=== PATIENT | female | born 1995 | race Caucasian/White ===

== ENCOUNTER 2018-11-02 04:46 | Emergency (ER) | payer OTHER ==
[~2018-11-02] VITALS: Ht 147.3 cm; Wt 49.9 kg
[2018-11-02 05:24] LABS: ABSOLUTE NEUTROPHILS 5.1 thou/uL (1.4-8.2); BASOPHILS 1.3 % (0.0-2.0); EOSINOPHILS 2.7 % (0.0-3.0); HEMATOCRIT 40.7 % (37.0-47.0); HEMOGLOBIN 14.2 gm/dL (12.0-15.0); LYMPHOCYTES 31.1 % (24.0-44.0); MCH 32.2 pg (26.0-34.0); MCHC 34.8 g/dL (28.0-37.0); MCV 92.5 fL (80.0-100.0); MONOCYTES 5.8 % (1.0-8.0); PLATELET COUNT 353 thou/uL (150-400); POLYS 59.1 % (36.0-66.0); RDW 12.5 % (10.5-14.5); WBC 8.6 thou/uL (4.0-11.0)
[2018-11-02 05:32] LABS: ANION GAP 9 mmol/L (7-16); BUN 14 mg/dL (7-18); CALCIUM 9.5 mg/dL (8.5-10.1); CHLORIDE 102 mmol/L (98-107); CO2 25 mmol/L (21-32); CREATININE 0.7 mg/dL (0.6-1.0); GLUCOSE 116 mg/dL (74-106); POTASSIUM 3.7 mmol/L (3.5-5.1); SODIUM 136 mmol/L (136-145)
[2018-11-02 05:39] LABS: APTT 30.4 Seconds (24.5-32.8); D-DIMER 0.19 ug/mLFEU (0.19-0.50); PROTIME 10.1 Seconds (9.3-11.4)
[2018-11-02 05:42] LABS: ALBUMIN 4.5 g/dL (3.4-5.0); MAGNESIUM 2.1 mg/dL (1.8-2.4); SGOT 21 U/L (15-37); SGPT 24 U/L (30-65); TOTAL BILIRUBIN 0.5 mg/dL (<0.1-1.0); TOTAL PROTEIN 8.6 g/dL (6.4-8.2); TROPONIN-I <0.06 ng/mL (<0.06)
[2018-11-02 06:05] LABS: AMP/METHAMP Negative (Negative); BARBITURATES Negative (Negative); BENZODIAZEPINES Negative (Negative); COCAINE Negative (Negative); METHADONE Negative (Negative); OPIATES Negative (Negative); PCP Negative (Negative)
[2018-11-02 07:50] VITALS: BP 111/75
[2018-11-02] MEDS ORDERED: VISTARIL 25 MG25 M1 PO (07:58)
--- NOTE | 2018-11-02 12:14 | EKG ---
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1995 Requested By: Denilson Rockwell Order Number: [id number] MD: Stephen Mascorro Measurements Intervals [place] Rate: 95 P: 49 DE: 131 QRS: 78 QRSD: 95 T: 58 QT: 356 QTc: 448 Interpretive Statements Sinus rhythm No significant abnormality No previous ECG available for comparison Electronically Signed On 11-02-2018 12:14:41 CDT by Stephen Mascorro [email or web address] ��������������������������������������������� <ELECTRONICALLY SIGNED> ���������������������������������������� By: Stephen Mascorro MD, [facility] ��������������������������������������������� 11/02/18 1214 0513 05 Stephen Mascorro MD, FACC /EPI
== END 2018-11-02 08:07 | disposition home or self-care (01) ==
LOC: ER 04:46
PROVIDERS: Emergency Medicine
DX: R06.02 Shortness of breath (principal); R07.9 Chest pain, unspecified; R00.2 Palpitations; J34.89 Other specified disorders of nose and nasal sinuses; Z88.1 Allergy status to other antibiotic agents

== ENCOUNTER 2018-11-05 23:45 | Emergency (ER) | payer OTHER ==
[~2018-11-05] VITALS: Ht 147.3 cm; Wt 49.9 kg
[~2018-11-05 23:45] MED LIST: VISTARIL 25 MG25 M1 PO
[2018-11-06] MEDS ORDERED: ATIVAN0.5 MG PO (01:59)
[2018-11-06 02:11] VITALS: BP 128/65
--- NOTE | 2018-11-06 09:12 | EKG ---
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1995 Requested By: Ashlee Spencer Order Number: [id number] MD: Stephen Mascorro Measurements Intervals [place] Rate: 93 P: 67 TN: 137 QRS: 80 QRSD: 91 T: 63 QT: 364 QTc: 453 Interpretive Statements Sinus rhythm Atrial premature complex Compared to ECG 11/02/2018 05:13:21 Atrial premature complex(es) now present Electronically Signed On 11-06-2018 9:12:11 CDT by Stephen Mascorro [email or web address] ��������������������������������������������� <ELECTRONICALLY SIGNED> ���������������������������������������� By: Stephen Mascorro MD, [facility] ��������������������������������������������� 11/06/18 0912 0036 Stephen Mascorro MD, FACC /EPI
[2018-11-07] MEDS ORDERED: PHENERGAN 25 MG25 M1 PO (18:22)
== END 2018-11-06 02:12 | disposition home or self-care (01) ==
LOC: ER 23:45
DX: F41.9 Anxiety disorder, unspecified (principal); T42.4X5A Adverse effect of benzodiazepines, initial encounter; R42 Dizziness and giddiness; Z88.1 Allergy status to other antibiotic agents; Y92.89 Other specified places as the place of occurrence of the external cause

== ENCOUNTER 2018-11-07 16:09 | Emergency (ER) | payer OTHER ==
[~2018-11-07] VITALS: Ht 147.3 cm; Wt 49.9 kg
[~2018-11-07 16:09] MED LIST changes: +ATIVAN0.5 MG PO
[2018-11-07 16:41] LABS: URINE BILIRUBIN NEGATIVE (Negative); URINE BLOOD NEGATIVE (Negative); URINE CLARITY CLEAR; URINE COLOR YELLOW; URINE GLUCOSE-RANDOM* NEGATIVE (Negative); URINE KETONES 3+ (Negative); URINE LEUKOCYTES-REFLEX NEGATIVE (Negative); URINE NITRITE-REFLEX NEGATIVE (Negative); URINE PROTEIN (DIPSTICK) NEGATIVE (Negative); URINE SPECIFIC GRAVITY 1.015 (1.005-1.035); URINE UROBILINOGEN 0.2 E.U./dl (0.2-1.0)
[2018-11-07 16:45] LABS: URINE REDUCING SUBSTANCE NEGATIVE
[2018-11-07 17:41] LABS: BASOPHILS 0.7 % (0.0-2.0); EOSINOPHILS 0.2 % (0.0-3.0); HEMATOCRIT 40.5 % (37.0-47.0); HEMOGLOBIN 13.6 gm/dL (12.0-15.0); LYMPHOCYTES 24.5 % (24.0-44.0); MCH 31.7 pg (26.0-34.0); MCHC 33.5 g/dL (28.0-37.0); MCV 94.6 fL (80.0-100.0); MONOCYTES 6.6 % (1.0-8.0); PLATELET COUNT 324 thou/uL (150-400); RBC 4.28 mil/uL (4.20-5.00); RDW 12.4 % (10.5-14.5); WBC 7.4 thou/uL (4.0-11.0)
[2018-11-07 17:53] LABS: CALCIUM 9.6 mg/dL (8.5-10.1); CREATININE 0.7 mg/dL (0.6-1.0); POTASSIUM 3.9 mmol/L (3.5-5.1)
[2018-11-07] MEDS ORDERED: PHENERGAN 25 MG25 M1 PO (18:22)
[2018-11-07 20:36] LABS: APTT 30.6 Seconds (24.5-32.8); PROTIME 10.4 Seconds (9.3-11.4)
[2018-11-07 20:50] VITALS: BP 119/72
== END 2018-11-07 20:50 | disposition home or self-care (01) ==
LOC: ER 16:09
PROVIDERS: Physician Assistant
DX: E86.0 Dehydration (principal); R63.0 Anorexia; Z88.1 Allergy status to other antibiotic agents

== ENCOUNTER 2018-11-26 15:18 | Emergency (ER) | payer OTHER ==
[~2018-11-26] VITALS: Ht 147.3 cm; Wt 45.8 kg
[~2018-11-26 15:18] MED LIST changes: +PHENERGAN 25 MG25 M1 PO
[2018-11-26 15:58] LABS: URINE BILIRUBIN NEGATIVE (Negative); URINE BLOOD 2+ (Negative); URINE CLARITY CLEAR; URINE COLOR YELLOW; URINE GLUCOSE-RANDOM* NEGATIVE (Negative); URINE KETONES NEGATIVE (Negative); URINE LEUKOCYTES-REFLEX NEGATIVE (Negative); URINE NITRITE-REFLEX NEGATIVE (Negative); URINE PROTEIN (DIPSTICK) NEGATIVE (Negative); URINE SPECIFIC GRAVITY <= 1.005 (1.005-1.035); URINE UROBILINOGEN 0.2 E.U./dl (0.2-1.0)
[2018-11-26 16:08] LABS: SQUAMOUS 4-10 Moderate /LPF (0-3)
[2018-11-26 16:09] LABS: BACTERIA-REFLEX None Seen /HPF (None Seen); CASTS None Seen /LPF (None Seen); CRYSTALS None Seen /LPF (None Seen); URINE RBC None Seen /HPF (0-2); URINE WBC-REFLEX None Seen /HPF (0-5)
[2018-11-26 16:46] LABS: HEMOGLOBIN 14.7 gm/dL (12.0-15.0); MCH 31.4 pg (26.0-34.0); MCHC 34.3 g/dL (28.0-37.0); MCV 91.7 fL (80.0-100.0); PLATELET COUNT 193 thou/uL (150-400); RBC 4.69 mil/uL (4.20-5.00); RDW 12.6 % (10.5-14.5); WBC 3.1 thou/uL (4.0-11.0)
[2018-11-26 17:03] LABS: ALBUMIN 4.6 g/dL (3.4-5.0); CREATININE 0.7 mg/dL (0.6-1.0); POTASSIUM 3.8 mmol/L (3.5-5.1); TOTAL BILIRUBIN 0.6 mg/dL (<0.1-1.0); TOTAL PROTEIN 8.8 g/dL (6.4-8.2)
[2018-11-26 17:08] LABS: CALCIUM 9.5 mg/dL (8.5-10.1)
[2018-11-26 17:29] LABS: ABSOLUTE NEUTROPHILS 1.8 thou/uL (1.4-8.2); ANISOCYTOSIS 1+
[2018-11-26] MEDS ORDERED: PRILOSEC 20 MG20 MG PO (19:09)
[2018-11-26] MEDS ORDERED: VENTOLIN HFA 1818 GM INH (19:09)
[2018-11-26 20:23] VITALS: BP 120/71
--- NOTE | 2018-11-27 09:13 | EKG ---
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1995 Requested By: Luciano Deng Order Number: [id number] MD: Stephen Mascorro Measurements Intervals [place] Rate: 95 P: 62 MO: 128 QRS: 88 QRSD: 84 T: 55 QT: 331 QTc: 416 Interpretive Statements Sinus rhythm Right ventricular conduction delay Compared to ECG 11/06/2018 00:36:40 Atrial premature complex(es) no longer present Electronically Signed On 11-27-2018 9:13:25 CDT by Stephen Mascorro [email or web address] ��������������������������������������������� <ELECTRONICALLY SIGNED> ���������������������������������������� By: Stephen Mascorro MD, [facility] ��������������������������������������������� 11/27/18 0913 173 173 Stephen Mascorro MD, [facility] /EPI
== END 2018-11-26 20:23 | disposition home or self-care (01) ==
LOC: ER 15:18
PROVIDERS: Emergency Medicine
DX: R06.00 Dyspnea, unspecified (principal); F41.9 Anxiety disorder, unspecified; R10.13 Epigastric pain; R20.2 Paresthesia of skin; Z88.1 Allergy status to other antibiotic agents